=== PATIENT | male | born 1990 | race Caucasian/White ===

== ENCOUNTER 2019-07-17 08:17 | Emergency (ER) | payer BC ==
[~2019-07-17] VITALS: Ht 172.7 cm; Wt 94.3 kg
[2019-07-17] MEDS ORDERED: PANTOPRAZOLE 40MG INJ (PROTONIX) (C9113) IV ONE (09:00)
[2019-07-17] MEDS ORDERED: ONDANSETRON 4MG/2ML VIAL (J2405) IV ONE (09:00)
[2019-07-17] MEDS ORDERED: NS 1,000 ML IV ONE (09:00)
[2019-07-17] MEDS ORDERED: KETOROLAC 30 MG/ML VIAL (J1885) IV ONE (09:00)
[2019-07-17] MEDS: GASTROGRAFIN SOLUTION 30ML PO SCH ×2 (09:20→09:55)
[2019-07-17 09:47] LABS: BASO % 0.2 % (0.0-1.0); EOS % 0.2 % (0.0-3.0); HEMATOCRIT 46.8 % (42.0-52.0); HEMOGLOBIN 15.8 g/dl (13.5-17.5); LYMPH # 1.1 10^3/uL (1.5-5.0); LYMPH % 13.7 % (24.0-44.0); MEAN CORPUSCULAR HEMOGLOBIN 29.7 pg (27.0-33.0); MEAN CORPUSCULAR HGB CONC 33.8 g/dl (32.0-36.5); MONO # 0.6 10^3/uL (0.0-0.8); MONO % 7.7 % (0.0-5.0); NEUTROPHILS # 6.2 10^3/uL (1.5-8.5); PLATELET COUNT, AUTOMATED 191 10^3/uL (150-450); RED BLOOD COUNT 5.32 10^6/uL (4.30-6.10)
[2019-07-17 10:09] LABS: INR 1.05; PARTIAL THROMBOPLASTIN TIME 24.4 SECONDS (25.0-38.4); PROTHROMBIN TIME 13.4 SECONDS (11.8-14.0)
[2019-07-17 10:11] LABS: ALBUMIN 4.5 GM/DL (3.2-5.2); ALT/SGPT 22 U/L (12-78); BILIRUBIN,DIRECT 0.1 MG/DL (0.0-0.2); BILIRUBIN,TOTAL 0.3 MG/DL (0.2-1.0); BLOOD UREA NITROGEN 21 MG/DL (7-18); CALCIUM LEVEL 9.4 MG/DL (8.5-10.1); CARBON DIOXIDE LEVEL 25 MEQ/L (21-32); CHLORIDE LEVEL 105 MEQ/L (98-107); CREATININE FOR GFR 1.23 MG/DL (0.70-1.30); GLOMERULAR FILTRATION RATE > 60.0 (>60); GLUCOSE, FASTING 103 MG/DL (70-100); LIPASE 111 U/L (73-393); SODIUM LEVEL 138 MEQ/L (136-145); TOTAL PROTEIN 8.2 GM/DL (6.4-8.2)
[2019-07-17] MEDS ORDERED: ISOVUE-370 76% 100ML VIAL (Q9967) As Ordered ONE (10:39)
--- NOTE | 2019-07-17 11:27 | REP ---
Clinical: Abdominal pain and hematochezia. Technique: Axial contrast enhanced images from the lung bases to the pubic symphysis using oral (per protocol) and 100 ml Isovue 370 intravenous contrast material with coronal and sagittal re-formations. Findings: Lung bases are clear. Visualized heart and pericardium normal. Liver, spleen, pancreas, gallbladder, bilateral adrenal glands and kidneys are normal. The enteric system is without obstruction or acute inflammatory process. Normal terminal ileum, appendix and cecum identified in the right lower quadrant. Few scattered sigmoid diverticula noted without acute diverticulitis. Pelvis demonstrates normal bladder and age appropriate prostate/seminal vesicles. No ascites. No free air. No adenopathy. Abdominal aorta without aneurysm. Musculoskeletal structures are intact. Impression: Normal contrast enhanced CT of the abdomen and pelvis. No acute abdominopelvic pathology appreciated. Electronically Signed by Alfie Olivas MD 07/17/2019 11:18 A
[2019-07-17] MEDS ORDERED: MACR100C43 PO (12:06)
[2019-07-17] MEDS ORDERED: PROT1TAB2 PO (12:10)
[2019-07-17] MEDS ORDERED: ONDA4TAB6 PO (12:10)
[2019-07-17 12:18] VITALS: BP 129/79
== END 2019-07-17 12:23 | disposition home or self-care (01) ==
LOC: M ED 08:17
DX: K62.5 Hemorrhage of anus and rectum (principal); R10.9 Unspecified abdominal pain; E86.0 Dehydration; R11.0 Nausea; R19.7 Diarrhea, unspecified; K21.9 Gastro-esophageal reflux disease without esophagitis
CPT/HCPCS: 36415; 74177; 80048; 80076; 81001; 83605; 83690; 85025; 85610; 85730; 87086; 87507; 96361; 96374; 96375; 99284; C9113; J1885; J2405; Q9963; Q9967